=== PATIENT | male | born 1945 | race Caucasian/White ===

== ENCOUNTER 2018-02-18 13:41 | Emergency (ER) | payer OTHER ==
[~2018-02-18] VITALS: Ht 172.7 cm; Wt 72.6 kg
[2018-02-18 14:01] VITALS: Ht 172.7 cm; Wt 72.6 kg
[2018-02-18 15:54] VITALS: BP 136/80
== END 2018-02-18 15:54 | disposition home or self-care (01) ==
LOC: ED 13:41
DX: S50.01XA Contusion of right elbow, initial encounter (principal); I10 Essential (primary) hypertension; Z86.73 Personal history of transient ischemic attack (TIA), and cerebral infarction without residual deficits; W01.0XXA Fall on same level from slipping, tripping and stumbling without subsequent striking against object, initial encounter; Y93.89 Activity, other specified; Y92.89 Other specified places as the place of occurrence of the external cause; Y99.8 Other external cause status

== ENCOUNTER 2018-04-13 10:01 | Emergency (ER) | payer OTHER ==
[~2018-04-13] VITALS: Ht 172.7 cm; Wt 65.8 kg
[2018-04-13 10:09] VITALS: Ht 172.7 cm; Wt 65.8 kg
[2018-04-13 10:42] VITALS: BP 144/90
== END 2018-04-13 10:42 | disposition home or self-care (01) ==
LOC: ED 10:01
DX: S50.01XA Contusion of right elbow, initial encounter (principal); M71.521 Other bursitis, not elsewhere classified, right elbow; I10 Essential (primary) hypertension; Z86.73 Personal history of transient ischemic attack (TIA), and cerebral infarction without residual deficits; Z98.890 Other specified postprocedural states; W08.XXXA Fall from other furniture, initial encounter; Y93.89 Activity, other specified; Y92.89 Other specified places as the place of occurrence of the external cause; Y99.8 Other external cause status